=== PATIENT | male | born 1965 | race American Indian/Alaskan Native ===

== ENCOUNTER 2017-04-20 10:17 | Outpatient (CLI) | payer BC ==
--- NOTE | 2017-04-20 10:55 | XRay Report ---
ROUTINE CHEST, TWO VIEWS: HISTORY: Persistent cough. The trachea, heart, mediastinal contour, lung packer and bony thorax are unremarkable. Small calcified granuloma in the lingula is unchanged since 10/13/12. IMPRESSION: Unremarkable chest x-ray.
== END 2017-04-20 10:18 | disposition home or self-care (01) ==
LOC: SPVIMAG 10:17
PROVIDERS: ATTEND Internal Medicine
DX: J84.10 Pulmonary fibrosis, unspecified (principal)
CPT/HCPCS: 71020